=== PATIENT | male | born 1975 | race Caucasian/White ===

== ENCOUNTER 2016-11-16 14:59 | Emergency (ER) | payer OTHER ==
[~2016-11-16] VITALS: Ht 175.3 cm; Wt 89.4 kg
[2016-11-16 20:00] VITALS: BP 111/78
== END 2016-11-16 20:01 | disposition home or self-care (01) ==
LOC: ED 14:59
DX: L03.115 Cellulitis of right lower limb (principal); Z88.5 Allergy status to narcotic agent
CPT/HCPCS: J1885; Q0092

== ENCOUNTER 2017-08-27 13:45 | Emergency (ER) | payer OTHER ==
[~2017-08-27] VITALS: Ht 177.8 cm; Wt 92.5 kg
[2017-08-27 13:48] VITALS: Ht 177.8 cm; Wt 92.5 kg
[2017-08-27 14:21] LABS: BASOPHIL % 0.1 % (0-2); PLATELET COUNT 379 x10^3mcL (130-400); RED CELL DISTRIBUTION WIDTH 13.4 % (11.5-14.5)
[2017-08-27 14:39] LABS: CALCIUM 9.2 mg/dL (8.5-10.1); CARBON DIOXIDE 28.1 mmol/L (21-32); CHLORIDE SERUM 109 mmol/L (98-107); CREATININE SERUM 1.3 mg/dL (0.7-1.3); GFR1 > 60 mL/min; GLUCOSE SERUM 92 mg/dL (74-106); POTASSIUM SERUM 3.5 mmol/L (3.5-5.1); SODIUM SERUM 141 mmol/L (136-145)
[2017-08-27 14:43] LABS: ALBUMIN 3.8 g/dL (3.4-5.0); ALKALINE PHOSPHATASE 110 U/L (46-116); ALT/SGPT 26 U/L (16-63); AST/SGOT 25 U/L (15-37); BILIRUBIN TOTAL 0.7 mg/dL (0.20-1.00); HDL CHOLESTEROL 38 mg/dL (40-60); LIPASE 104 IU/L (73-393)
[2017-08-27 15:09] LABS: FREE T4 0.89 ng/dL (0.76-1.46); FREE THYROXINE INDEX 1.8 ug/dL (1.4-4.5); T4(THYROXINE) 4.8 ug/dL (4.7-13.3)
[2017-08-27 15:14] LABS: CHOLESTEROL 111 mg/dL (<200); CHOLESTEROL/HDL RATIO 2.9; TRIGLYCERIDES 107 mg/dL (<150)
[2017-08-27 15:30] LABS: T3 TOTAL 0.98 ng/mL
[2017-08-27 16:59] LABS: UA SPECIFIC GRAVITY >=1.030 (1.005-1.035); microscopic required? YES; urine erythrocyte NEGATIVE (NEGATIVE)
[2017-08-27 17:33] LABS: AMPHETAMINE QUAL UR POSITIVE (See below)
[2017-08-27 18:52] VITALS: BP 151/94
== END 2017-08-27 18:52 | disposition short-term general hospital (02) ==
LOC: ED 13:45
PROVIDERS: Specialist
DX: N28.0 Ischemia and infarction of kidney (principal); R11.2 Nausea with vomiting, unspecified; Z88.5 Allergy status to narcotic agent
CPT/HCPCS: 83880; 84439; J1885; J2270; J2405; Q0092; Q9967

== ENCOUNTER 2017-09-21 22:30 | Emergency (ER) | payer OTHER ==
[~2017-09-21] VITALS: Ht 175.3 cm; Wt 90.7 kg
[2017-09-21 22:34] VITALS: Ht 175.3 cm; Wt 90.7 kg
[2017-09-21 23:23] LABS: BASOPHIL % 0.4 % (0-2); PLATELET COUNT 384 x10^3mcL (130-400); RED CELL DISTRIBUTION WIDTH 13.4 % (11.5-14.5)
[2017-09-21 23:35] LABS: CALCIUM 8.2 mg/dL (8.5-10.1); CARBON DIOXIDE 28.1 mmol/L (21-32); CHLORIDE SERUM 105 mmol/L (98-107); CREATININE SERUM 1.1 mg/dL (0.7-1.3); GFR1 > 60 mL/min; GLUCOSE SERUM 97 mg/dL (74-106); POTASSIUM SERUM 3.6 mmol/L (3.5-5.1); SODIUM SERUM 140 mmol/L (136-145)
[2017-09-21 23:40] LABS: ALBUMIN 3.4 g/dL (3.4-5.0); ALKALINE PHOSPHATASE 124 U/L (46-116); ALT/SGPT 27 U/L (16-63); AST/SGOT 12 U/L (15-37); BILIRUBIN TOTAL 0.5 mg/dL (0.20-1.00); TOTAL PROTEIN, SERUM 6.7 g/dL (6.4-8.2)
[2017-09-22 01:15] LABS: microscopic required? NO
[2017-09-22 01:24] LABS: UA SPECIFIC GRAVITY >=1.030 (1.005-1.035); urine erythrocyte NEGATIVE (NEGATIVE)
[2017-09-22 02:48] VITALS: BP 134/93
== END 2017-09-22 02:48 | disposition home or self-care (01) ==
LOC: ED 22:30
PROVIDERS: Emergency Medicine
DX: R10.9 Unspecified abdominal pain (principal); R11.0 Nausea; Z88.4 Allergy status to anesthetic agent
CPT/HCPCS: J1885; J2270; J2405; J7030

== ENCOUNTER 2018-05-15 18:12 | Emergency (ER) | payer BC ==
[~2018-05-15] VITALS: Ht 177.8 cm; Wt 102.5 kg
[2018-05-15 18:15] VITALS: Ht 177.8 cm; Wt 102.5 kg
[2018-05-15 19:45] LABS: BASOPHIL % 0.4 % (0-2); PLATELET COUNT 399 x10^3mcL (130-400); RED CELL DISTRIBUTION WIDTH 13.2 % (11.5-14.5)
[2018-05-15 20:05] LABS: CALCIUM 8.8 mg/dL (8.5-10.1); CHLORIDE SERUM 104 mmol/L (98-107); CREATININE SERUM 1.2 mg/dL (0.7-1.3); GFR1 > 60 mL/min; GLUCOSE SERUM 118 mg/dL (74-106); POTASSIUM SERUM 4.8 mmol/L (3.5-5.1); SODIUM SERUM 140 mmol/L (136-145)
[2018-05-15 20:09] LABS: ALKALINE PHOSPHATASE 106 U/L (46-116); ALT/SGPT 31 U/L (16-63); AST/SGOT 18 U/L (15-37); BILIRUBIN TOTAL 0.9 mg/dL (0.20-1.00); TOTAL PROTEIN, SERUM 7.6 g/dL (6.4-8.2)
[2018-05-15 21:17] LABS: urine erythrocyte NEGATIVE (NEGATIVE)
[2018-05-15 21:28] LABS: microscopic required? YES
[2018-05-15 22:39] VITALS: BP 134/71
== END 2018-05-15 22:53 | disposition home or self-care (01) ==
LOC: ED 18:12
PROVIDERS: Emergency Medicine
DX: R10.9 Unspecified abdominal pain (principal); R11.0 Nausea; R33.9 Retention of urine, unspecified; Z87.442 Personal history of urinary calculi; Z88.5 Allergy status to narcotic agent
CPT/HCPCS: J1885; J2270; J2405; J7030; Q9967

== ENCOUNTER 2018-09-24 19:10 | Emergency (ER) | payer BC ==
[~2018-09-24] VITALS: Ht 175.3 cm; Wt 79.8 kg
[2018-09-24 19:27] VITALS: Ht 175.3 cm; Wt 79.8 kg
[2018-09-24 21:05] VITALS: BP 132/86
== END 2018-09-24 21:05 | disposition home or self-care (01) ==
LOC: ED 19:10
DX: T15.01XA Foreign body in cornea, right eye, initial encounter (principal); Z88.8 Allergy status to other drugs, medicaments and biological substances; Z87.442 Personal history of urinary calculi; W45.8XXA Other foreign body or object entering through skin, initial encounter; Y93.89 Activity, other specified; Y92.89 Other specified places as the place of occurrence of the external cause; Y99.8 Other external cause status

== ENCOUNTER 2019-01-16 11:44 | Inpatient (IN) | payer BC ==
[~2019-01-16] VITALS: Ht 177.8 cm; Wt 87.8 kg
[2019-01-16 12:04] VITALS: Ht 177.8 cm; Wt 87.8 kg
[2019-01-16 15:12] LABS: BASOPHIL % 0.3 % (0-2); PLATELET COUNT 402 x10^3mcL (130-400); RED CELL DISTRIBUTION WIDTH 12.8 % (11.5-14.5)
[2019-01-16 15:25] LABS: CALCIUM 9.6 mg/dL (8.5-10.1); CHLORIDE SERUM 102 mmol/L (98-107); CREATININE SERUM 1.2 mg/dL (0.7-1.3); GFR1 > 60 mL/min; GLUCOSE SERUM 134 mg/dL (74-106); POTASSIUM SERUM 4.1 mmol/L (3.5-5.1); SODIUM SERUM 141 mmol/L (136-145)
[2019-01-16 15:43] LABS: ALBUMIN 4.3 g/dL (3.4-5.0); ALKALINE PHOSPHATASE 153 U/L (46-116); ALT/SGPT 43 U/L (16-63); AST/SGOT 19 U/L (15-37); BILIRUBIN TOTAL 1.13 mg/dL (0.20-1.00); LIPASE 89 IU/L (73-393)
[2019-01-16 15:51] LABS: TOTAL PROTEIN, SERUM 8.5 g/dL (6.4-8.2)
[2019-01-16 16:47] LABS: CHOLESTEROL/HDL RATIO 3.2; MAGNESIUM 2.4 mg/dL (1.8-2.4); PHOSPHOROUS 2.7 mg/dL (2.5-4.9)
[2019-01-16 17:40] VITALS: BP 119/80
[2019-01-16 20:21] VITALS: BP 136/76
[2019-01-17 01:19] LABS: UA SPECIFIC GRAVITY 1.025 (1.005-1.035); microscopic required? YES; urine erythrocyte NEGATIVE (NEGATIVE)
[2019-01-17 01:29] LABS: AMPHETAMINE QUAL UR POSITIVE (See below)
[2019-01-17 05:17] VITALS: BP 114/78
[2019-01-17 09:00] VITALS: BP 133/90
[2019-01-17 11:04] LABS: BASOPHIL % 0.4 % (0-2); PLATELET COUNT 381 x10^3mcL (130-400)
[2019-01-17 11:20] LABS: ALBUMIN 3.3 g/dL (3.4-5.0); ALKALINE PHOSPHATASE 114 U/L (46-116); ALT/SGPT 26 U/L (16-63); AST/SGOT 15 U/L (15-37); BILIRUBIN TOTAL 1.1 mg/dL (0.20-1.00); CALCIUM 8.2 mg/dL (8.5-10.1); CARBON DIOXIDE 31.1 mmol/L (21-32); CHLORIDE SERUM 105 mmol/L (98-107); CREATININE SERUM 1.2 mg/dL (0.7-1.3); GFR1 > 60 mL/min; GLUCOSE SERUM 137 mg/dL (74-106); POTASSIUM SERUM 4.4 mmol/L (3.5-5.1); SODIUM SERUM 141 mmol/L (136-145); TOTAL PROTEIN, SERUM 6.7 g/dL (6.4-8.2)
[2019-01-17 14:54] VITALS: BP 133/90
== END 2019-01-17 15:22 | disposition home or self-care (01) | DRG 390 ==
LOC: ED 11:44 → MU 16:01
PROVIDERS: Emergency Medicine; Surgery; ADMIT Internal Medicine
DX: K56.7 Ileus, unspecified (principal); F17.200 Nicotine dependence, unspecified, uncomplicated; D72.829 Elevated white blood cell count, unspecified; G43.909 Migraine, unspecified, not intractable, without status migrainosus; F11.10 Opioid abuse, uncomplicated; F15.10 Other stimulant abuse, uncomplicated; Z88.8 Allergy status to other drugs, medicaments and biological substances; D17.24 Benign lipomatous neoplasm of skin and subcutaneous tissue of left leg
CPT/HCPCS: 83880; 90658; G0378; J1885; J2270; J2405; J7030; Q0092